=== PATIENT | female | born 1965 | race Hispanic/Latino ===

== ENCOUNTER 2017-10-21 11:37 | Inpatient (IN) | payer OTHER ==
[2017-10-21 12:14] LABS: Bilirubin Negative (Negative); Blood, Urine Negative (Negative); Clarity Clear (Clear); Glucose, Urine (Dipstick) Negative (Negative); Leukocyte Negative (Negative); Nitrite Negative (Negative); Protein, Urine (Dipstick) Negative (Neg-Trace); Urobilinogen 0.2 mg/dL (0.2-1.0)
[2017-10-21 12:28] LABS: #Basophils 0.1 thou/uL (0.0-0.2); #Lymphocytes 2.4 thou/uL (1.20-3.40); #Monocytes 1.1 thou/uL (0.11-0.59); #Neutrophils 15.2 thou/uL (1.40-6.50); %Basophils 0.4 % (0.0-1.0); %Eosinophils 0.1 % (0.0-10.0); %Lymphocytes 12.8 % (21.0-51.0); %Monocytes 5.7 % (0.0-10.0); Hemoglobin 13.5 g/dL (12.0-16.0); Mean Corpuscular HGB CONC 34.8 g/dL (32.0-36.0); Mean Corpuscular Hemoglobin 29.8 pg (27.0-31.0); Mean Corpuscular Volume 85.8 fL (78.0-98.0); Mean Platelet Volume 8.9 fL (7.4-10.4); Platelet Count 328 thou/uL (130-400); RBC Distribution Width 11.1 % (11.5-14.5); Red Blood Cell (RBC) Count 4.53 mill/uL (4.20-5.40); White Blood Cell (WBC) Count 18.8 thou/uL (4.8-10.8)
--- NOTE | 2017-10-21 12:33 | RAD ---
FRONTAL VIEW CHEST TWO VIEW ABDOMEN ACUTE ABDOMINAL SERIES: INDICATION: Pain with fever and chills. FINDINGS: The lungs are clear. No effusion. No free air beneath the hemidiaphragms. Cardiac silhouette is no rmal in size. The bowel gas pattern is nonobstructed. Osseous structures are intact. IMPRESSION: 1. No focal consolidation. 2. No evidence of free air. POS: [facility]
[2017-10-21 12:35] LABS: BHCG - Serum Negative (NEGATIVE); Pregs Control Background? CLEAR/WHITE (CLR/WHITE); Pregs Control Bar Appear? YES (CONTROL BAR)
[2017-10-21 12:43] LABS: ALT (SGPT) 17 U/L (8-55); AST (SGOT) 13 U/L (5-34); Albumin 4.2 g/dL (3.5-5.0); Alkaline Phosphatase 92 U/L (40-150); Anion Gap 13 mmol/L (10-20); BUN (Urea Nitrogen) 8 mg/dL (7.0-18.7); Calc. Creatinine Clearance 0 mL/min (70-130); Calcium 9.4 mg/dL (7.8-10.44); Carbon Dioxide 24 mmol/L (22-29); Chloride 106 mmol/L (98-107); Estimated GFR-MDRD Greater than 90; Globulin 3.8 g/dL (2.4-3.5); Glucose 127 mg/dL (70-105); Lipase 26 U/L (8-78); Potassium 3.7 mmol/L (3.5-5.1); Sodium 139 mmol/L (136-145)
[2017-10-21] MEDS ORDERED: Iopamidol 370 76% 100 ML VIAL ONE (14:56)
[2017-10-21] MEDS ORDERED: Succinylcholine Chloride 20 MG/ML 10 ml SYRINGE FS ONE (15:37)
[2017-10-21] MEDS ORDERED: Dexamethasone 20 MG/5 ML VIAL ONE (15:37)
[2017-10-21] MEDS ORDERED: PROPOFOL 200 MG/20 ML VIAL ONE (15:37)
[2017-10-21] MEDS ORDERED: Glycopyrrolate 0.2 MG/ML 5 ML SYRINGE ONE (15:37)
[2017-10-21] MEDS ORDERED: PHENYLEPHRINE-NS 100 MCG/ML 10 ML SYRINGE ONE (15:37)
[2017-10-21] MEDS ORDERED: Ondansetron HCl/PF 4 MG/2 ML Vial ONE (15:37)
[2017-10-21] MEDS ORDERED: Ketorolac Tromethamine 30 MG/ML VIAL ONE (15:37)
[2017-10-21] MEDS ORDERED: Lidocaine 1% PF 5 ML VIAL ONE ×2 (15:37)
--- NOTE | 2017-10-21 15:58 | CT ---
CT OF THE ABDOMEN AND PELVIS WITH IV CONTRAST: INDICATION: Fever and abdominal pain. FINDINGS: No comparisons are available. The lung bases are clear. There is a small gallstone within the gallbladder. There is a small area of focal fatty infiltration near the falciform ligament. The pancreas and adrenal glands are normal appearing. The kidneys are normal appearing. The spleen is normal appearing. There is marked dilatation of the appendix is with prominent surrounding inflammatory stranding. The appendix measures up to 2.7 cm. There is prominent wall thickening involving the cecum as well as t he distal ileum. The bladder, rectum, and perirectal soft tissues are unremarkable. There is no destiny dence of small bowel obstruction. No percutaneous drainable fluid collection is evident. No definit e acute osseous abnormality is evident. IMPRESSION: 1. Marked thickening and inflammatory stranding surrounding the appendix suspicious for acute append icitis. No definite drainable fluid collection is evident. There is marked wall thickening involvin g the adjacent cecum as well as a loop of distal ileum. The TI does not appear as thickened as the c ecum and distal ileum suggesting that the wall thickening involving the cecum and ileum is related to reactive changes rather than inflammatory bowel disease which is a differential consideration. Findings were called to Dr. Marquez at 3:34 p.m. on 10/21/17. 2. Mild fatty liver. 3. Cholelithiasis CODE CR POS: [facility]
[2017-10-21] MEDS ORDERED: Piperacillin/Tazobactam 4.5 GM VIAL ONE (15:59)
[2017-10-21] MEDS ORDERED: Fentanyl 100 MCG/2 ML VIAL ONE ×2 (18:26→21:00)
[2017-10-21] MEDS ORDERED: Bupivacaine/Epinephrine 0.25% 30 ML VIAL ONE (18:28)
--- NOTE | 2017-10-21 20:04 | HP ---
DATE OF ADMISSION: 10/21/2017 HISTORY OF PRESENT ILLNESS: This is a 52-year-old woman, who presented Hospital with insidious onset right lower quadrant abdominal pain. This pain was described as sharp, initially mi gratory. The pain then seemed to settle in the right lower quadrant. Pain was rated at 8/10 and ass ociated with two episodes of nausea and nonbilious emesis. Remotely, the patient reports similar adeline n which started approximately 1 month ago for which primary care physician had placed her on antibiot ics for 1 week. During the period of antibiotic therapy, she had no symptoms, but once the antibioti cs finished, the patient complained about recurrent right lower quadrant abdominal pain, which has be en intermittent up until this morning when the pain became so severe. The patient reports no fevers or chills. She reports no change in her bowel habits. PAST MEDICAL HISTORY: Pertinent for type 2 diabetes mellitus. PAST SURGICAL HISTORY: She denies any previous surgeries. SOCIAL HISTORY: She is a G5, P5. She is employed as an assistant shift supervisor in a kitchen. She denies any ciga rette smoking, ethanol or illicit drug abuse. MEDICATIONS: Hospital medication includes Tradjenta 5 mg p.o. daily. ALLERGIES: The patient denies any known drug allergies. FAMILY HISTORY: Significant for her mother who has diabetes mellitus, heart disease, and essential h ypertension. The patient reports no family history of cancer. REVIEW OF SYSTEMS: Ten-point review of systems is essentially unremarkable except for as stated in p ast medical history and chief complaint. PHYSICAL EXAMINATION: GENERAL: This reveals a 52-year-old normally developed woman, who is otherwise coherent and interact pretty and appears stated age. The patient is alert and oriented x3, appears to be in no acute distress at the time of my evaluation. VITAL SIGNS: Blood pressure 122/75, pulse is 103, respiratory rate 16, temperature 99.2 degrees Fahr enheit, oxygen saturation is 96% on room air. HEENT: Normocephalic and atraumatic. Pupils are equal; round; and reactive to light and accommodati on. Extraocular muscles are intact bilaterally. No sclerae icterus is present. Oral mucosa is pink and moist. No lesions are noted. HEART: Regular rate and rhythm. No murmurs or gallops auscultated. LUNGS: Clear to auscultation bilaterally. Breathing regular and unlabored. ABDOMEN: Soft with right lower quadrant tenderness at McBurney. She has a positive Rovsing sign. L iver and spleen are otherwise nonpalpable below costal margin. NEUROLOGIC: No focal deficits present. LABORATORY DATA: Pertinent laboratory findings today includes a CBC with 18,800 white blood cells, h emoglobin and hematocrit 13.5 and 38.9 respectively, platelet count is 328,000. Metabolic profile: Sodium 139, potassium is 3.7, chloride is 106, bicarbonate is 24, BUN 8, creatinine 0.64, glucose 127 , total bilirubin is 1. AST and ALT are normal at 13 and 17 respectively. Serum lipase is normal at 26. Serum test is negative. Urinalysis is essentially unremarkable. I have personally reviewed the CT scan of the abdomen and pelvis, which reveals dilated appendix at 2 .7 cm with significant periappendiceal fat stranding. I did not see any pneumoperitoneum or fluid co llection to suggest abscess. IMPRESSION: Acute on chronic appendicitis with phlegmon. PLAN: Laparoscopic appendectomy. I have informed the patient of the above findings and plan. I hav e also advised the patient of the risk and benefits of the proposed surgery. Risks include, but not limited to bleeding, infection, injury to bowel or surrounding structures. The patient faces additio nal risk for conversion to open due to 1 month long of symptomatology, which may present itself with significant amount of inflammatory adhesions. The patient indicates understanding of the information given. I have answered her questions. This information was provided to the patient in the presence of her large family.
[2017-10-21] MEDS ORDERED: Promethazine HCl 25 MG/ML VIAL SLOW IVP PRN (20:20)
[2017-10-21] MEDS ORDERED: Promethazine HCl 25 MG/ML VIAL IM PRN ×2 (20:20→20:39)
[2017-10-21] MEDS ORDERED: Ondansetron HCl/PF 4 MG/2 ML Vial IVP PRN ×2 (20:20→20:39)
[2017-10-21] MEDS ORDERED: Dextrose 5% in Water 1,000 ML IV PRN (20:39)
[2017-10-21] MEDS ORDERED: hydrALAZINE 20 MG/ML VIAL SLOW IVP PRN (20:39)
[2017-10-21] MEDS ORDERED: Dextrose 50% Abboject 50 ML SYRINGE SLOW IVP PRN (20:39)
[2017-10-21] MEDS ORDERED: traMADol HCl 50 MG TAB PO PRN ×2 (20:42)
[2017-10-21 21:38] VITALS: BMI 23.2
[2017-10-21] MEDS: Piperacillin/Tazobactam 3.375 GM in Sodium Chloride 0.9% 100 ML IVPB SCH (22:27)
[2017-10-21] MEDS: Lactated Ringer's 1,000 ML IV SCH (22:28)
[2017-10-21] MEDS: Acetaminophen 500 MG TAB PO SCH (22:28)
[2017-10-21] MEDS: Famotidine 20 MG TAB PO SCH (22:28)
[2017-10-21] MEDS: Famotidine/PF 20 mg/2ml Vial SLOW IVP SCH (23:15)
--- NOTE | 2017-10-22 00:19 | OP ---
DATE OF OPERATION: 10/21/2017 PREOPERATIVE DIAGNOSIS: Acute on chronic appendicitis. POSTOPERATIVE DIAGNOSES: Acute on chronic appendicitis plus periappendiceal abscess. SURGEON: Dr. Jefferson Granado. ANESTHESIA: General endotracheal. ESTIMATED BLOOD LOSS: 25 mL FLUIDS GIVEN: 600 mL crystalloids. URINARY OUTPUT: 200 mL SPONGE AND INSTRUMENT COUNT: Certified as correct x2. COMPLICATIONS: None apparent. INDICATIONS FOR PROCEDURE: This is a 52-year-old woman with 1 month history of recurrent right lower quadrant abdominal pain for which she was treated with antibiotics for 1 week approximately a month ago. Patient presented with severe recurrent right lower quadrant abdominal pain at this time on ___ __. Clinical examination was consistent with a dilated appendix with periappendiceal fat stran ding. Patient was brought to the operating room for appendectomy. FINDINGS: Consistent with dilated necrotic retrocecal appendix with small periappendiceal abscess ph legmon. DESCRIPTION OF PROCEDURE: Informed consent obtained from the patient who was brought to the operatin g room and placed in supine position. Following general anesthesia, a Kennedy catheter was inserted an d placed bedside drain. Abdomen was sterilely prepped and draped in the usual fashion. The skin bel ow the umbilicus was infiltrated with 0.25% Marcaine with epinephrine. A small curvilinear infraumbi lical incision was made using an 11 scalpel. Umbilical stalk grasped with Chandana's and elevated. Ve ress needle was inserted through the incision and placed in the peritoneal cavity through which the a bdomen was insufflated with 3 liters of CO2 gas. Intraabdominal pressure noted at 2 mmHg. Following abdominal insufflation, Veress needle was removed and a 5 mm trocar introduced using the Visiport un cris laparoscopy. Laparoscopy confirmed proper placement of the port, no injuries to underlying struc tures. Additional laparoscopy reveals right lower quadrant completely encased by omental adhesions. Under direct laparoscopy, 5 mm suprapubic and 12 mm left lower quadrant ports were placed after the overlying skin was infiltrated with 0.25% Marcaine with epinephrine and appropriate incision was made . Patient was placed in a Trendelenburg position, rotated to her left. I introduced a Prestige gras per through the left lower quadrant port site using this to take down omental adhesions to expose the terminal ileum which is completely welded to a retrocecal appendix and the cecum. We then continued using Endo suction catheter and bluntly taken down the small bowel off of the appendix and the appen mono was then freed up from the right lateral gutter. An appendiceal abscess which was encountered be tween the terminal ileum and the mesoappendix was evacuated using suction. A rent was then created through the mesoappendix at the base through which an Endo-BRAYDON with a blue lo ad was introduced and the appendix was divided at the appendical cecal junction. Using a white load of the Endo-BRAYDON, the mesoappendix was sterilely divided with good hemostasis. The suppurative append ix was delivered of the abdominal cavity using an EndoCatch. Operative site was again irrigated with saline solution noting good hemostasis. Finding no other pathology, laparoscopy was terminated. Fa scia of the left lower quadrant port was closed using 0 Vicryl suture and Endo closure device under l aparoscopy. Abdomen was desufflated after a #19 Ravinder drain was introduced into the right lower quad rant allowing this to exit the abdominal cavity through the suprapubic port site. After all ports and instruments have been removed and accounted for, the drain was secured to anterio r abdominal wall using 2-0 silk suture. Remaining incisions were closed using 4-0 Monocryl suture in subcuticular fashion. Dermabond was applied over the incisions. Patient tolerated the operation without any apparent complication and was returned to recovery room i n satisfactory condition.
[2017-10-22] MEDS: Ketorolac Tromethamine 30 MG/ML VIAL IVP PRN ×2 (01:47→08:16)
[2017-10-22] MEDS: Acetaminophen 500 MG TAB PO SCH ×5 (03:09→21:28)
[2017-10-22] MEDS: Piperacillin/Tazobactam 3.375 GM in Sodium Chloride 0.9% 100 ML IVPB SCH ×4 (04:09→21:30)
[2017-10-22 06:01] LABS: #Lymphocytes 1.2 thou/uL (1.20-3.40); #Monocytes 0.3 thou/uL (0.11-0.59); #Neutrophils 16.3 thou/uL (1.40-6.50); %Basophils 0.1 % (0.0-1.0); %Eosinophils 0.1 % (0.0-10.0); %Lymphocytes 6.5 % (21.0-51.0); %Monocytes 1.5 % (0.0-10.0); %Neutrophils 91.9 % (42.0-75.0); Mean Corpuscular HGB CONC 33.5 g/dL (32.0-36.0); Mean Corpuscular Hemoglobin 30.6 pg (27.0-31.0); Mean Corpuscular Volume 91.2 fL (78.0-98.0); Mean Platelet Volume 8.3 fL (7.4-10.4); Platelet Count 298 thou/uL (130-400); RBC Distribution Width 11.8 % (11.5-14.5); Red Blood Cell (RBC) Count 3.92 mill/uL (4.20-5.40); White Blood Cell (WBC) Count 17.7 thou/uL (4.8-10.8)
[2017-10-22] MEDS: Famotidine 20 MG TAB PO SCH ×2 (08:06→21:28)
[2017-10-22] MEDS: Enoxaparin Sodium 40 MG/0.4 ML SYRINGE SC SCH (08:06)
[2017-10-22] MEDS: Lactated Ringer's 1,000 ML IV SCH ×2 (08:06→18:43)
[2017-10-22] MEDS: Famotidine/PF 20 mg/2ml Vial SLOW IVP SCH (08:07)
[2017-10-23] MEDS: Piperacillin/Tazobactam 3.375 GM in Sodium Chloride 0.9% 100 ML IVPB SCH ×2 (03:27→10:30)
[2017-10-23] MEDS: Acetaminophen 500 MG TAB PO SCH ×4 (03:27→20:58)
--- NOTE | 2017-10-23 04:19 | PRG ---
DATE OF SERVICE: 10/23/2017 SUBJECTIVE: The patient is hospital day #2 status, postop day #1 from an acute on chronic appendicit is with phlegmon. She underwent laparoscopic appendectomy and she tolerated this procedure well. Yoshi salazar was placed on clear liquid diet last night, which she tolerated. Her pain is controlled and she blackburn d no issues overnight. PHYSICAL EXAMINATION: VITAL SIGNS: Temperature is 97.9, heart rate 69, blood pressure 105/69, respirations 16, oxygen satu ration 95% on room air. GENERAL: The patient is resting comfortably in bed with the assistance of an freelance interpreter/translator. She made it clear that she was not having any pain or having issues. She is passing gas, but has not had a wes wel movement yet. LUNGS: Clear to auscultation. HEART: Regular rate and rhythm. ABDOMEN: Soft, minimally tenderness. Wounds are clean, dry, and intact. LABORATORY DATA: White blood cell count 17.1, hemoglobin 12.0, hematocrit 35.7, platelets 298. Ther e are no radiographs to review this morning. ASSESSMENT AND PLAN: Status post acute on chronic appendicitis with phlegmon, status post laparoscop ic appendectomy. Plan will be to have the patient remain on clear liquid diet. Pain control, genera l IV fluid hydration and await bowel function return, at which time we will advance the patient's t and hopes that the patient will be able to be discharged within the next day or two. The evaluatio n was done with Dr. Granado this morning during rounds.
[2017-10-23] MEDS: Lactated Ringer's 1,000 ML IV SCH (05:20)
[2017-10-23] MEDS: Famotidine 20 MG TAB PO SCH ×2 (08:32→20:57)
[2017-10-23] MEDS: Enoxaparin Sodium 40 MG/0.4 ML SYRINGE SC SCH (08:32)
[2017-10-23] MEDS ORDERED: Ibuprofen 600 MG TAB PO PRN (17:01)
[2017-10-23] MEDS ORDERED: Senokot 8.6 MG TAB PO PRN (17:08)
--- NOTE | 2017-10-23 19:15 | PRG ---
DATE OF SERVICE: 10/23/2017 SUBJECTIVE: Ms. Holly is a 52-year-old woman who is postoperative day #2, status post laparoscop ic appendectomy and drainage of periappendiceal abscess. The patient is awake and alert. She reports adequate pain control. MARY drain returned scant serous f luid. OBJECTIVE: VITAL SIGNS: Today includes blood pressure 127/80, pulse is 72, respiratory rate 16, temperature is 98.5 degrees Fahrenheit, oxygen saturation is 92% on room air. HEENT: Reveals normocephalic and atraumatic. Pupils are equal, round, and reactive to light and acc ommodation. Extraocular muscles are intact bilaterally. No scleral icterus present. HEART: Reveals regular rate and rhythm, no murmurs or gallops auscultated. CHEST: Lungs clear to auscultation bilaterally. Breathing regular and unlabored. ABDOMEN: Soft, nondistended. SKIN: Incisions are intact, clean, and dry. She has no gross peritoneal signs on examination. IMPRESSION: Postoperative day #2, status post laparoscopic appendectomy and drainage of periappendic eal abscess, patient is hemodynamically stable. PLAN: 1. Remove Low-Piedra drain. 2. We will advance diet as tolerated. Antibiotics will be converted to oral intake for another 24 h ours and consider discharge if patient remains hemodynamically stable by morning. The above findings and plan discussed with the patient who indicates understanding of the information given. I have answered her questions.
[2017-10-23] MEDS: Docusate 100 MG CAP PO SCH (20:58)
[2017-10-23] MEDS: Amoxicillin/Potassium Clav 875 MG TAB PO SCH (20:58)
[2017-10-24] MEDS: Acetaminophen 500 MG TAB PO SCH ×3 (02:43→14:41)
[2017-10-24 04:35] LABS: Anion Gap 14 mmol/L (10-20); BUN (Urea Nitrogen) 7 mg/dL (7.0-18.7); Calc. Creatinine Clearance 86 mL/min (70-130); Calcium 8.8 mg/dL (7.8-10.44); Carbon Dioxide 27 mmol/L (22-29); Chloride 104 mmol/L (98-107); Estimated GFR-MDRD Greater than 90; Glucose 100 mg/dL (70-105); Magnesium 1.7 mg/dL (1.6-2.6); Phosphorus 3.3 mg/dL (2.3-4.7); Potassium 3.8 mmol/L (3.5-5.1); Sodium 141 mmol/L (136-145)
[2017-10-24 04:46] LABS: Band 1 % (5-11); Hemoglobin 12.1 g/dL (12.0-16.0); Lymphocytes 19 % (21-51); MDiff Complete? YES; Mean Corpuscular HGB CONC 32.9 g/dL (32.0-36.0); Mean Corpuscular Hemoglobin 30.3 pg (27.0-31.0); Mean Platelet Volume 8.2 fL (7.4-10.4); Monocytes 8 % (0-10); Neutrophil 72 % (42-75); Platelet Count 338 thou/uL (130-400); RBC Distribution Width 11.8 % (11.5-14.5); White Blood Cell (WBC) Count 10.4 thou/uL (4.8-10.8)
[2017-10-24] MEDS ORDERED: Polyethylene Glycol 3350 17 GM Packet PO SCH (09:00)
[2017-10-24] MEDS: Famotidine 20 MG TAB PO SCH (09:02)
[2017-10-24] MEDS: Amoxicillin/Potassium Clav 875 MG TAB PO SCH (09:02)
[2017-10-24] MEDS: Enoxaparin Sodium 40 MG/0.4 ML SYRINGE SC SCH (09:02)
[2017-10-24] MEDS: Docusate 100 MG CAP PO SCH (09:03)
[2017-10-24 15:25] VITALS: BP 127/80; TEMP 98.1
== END 2017-10-24 19:24 | disposition home or self-care (01) | DRG 340 ==
LOC: SCSER 11:37 → SURG A 15:50 → OBSVTOIN 15:50
PROVIDERS: ADMIT Surgery; ATTEND Surgery
PROC: 0DTJ4ZZ Resection of Appendix, Percutaneous Endoscopic Approach (ICD-10-PCS; principal; 2017-10-21)
DX: K35.3 Acute appendicitis with localized peritonitis (principal); E11.9 Type 2 diabetes mellitus without complications; K36 Other appendicitis
CPT/HCPCS: 36415; 36416; 74022; 74177; 80048; 80053; 81003; 83605; 83690; 83735; 84100; 84703; 85007; 85025; 85027; 88304; 90471; 90732; 96365; G0009; J1100; J1650; J1885; J2001; J2405; J2543; J2550; J2704; J3010; J7050; S0028

== ENCOUNTER 2020-07-09 14:25 | Outpatient (CLI) | payer OTHER | END 2020-07-09 14:26 | disposition home or self-care (01) | LOC: BICMAMMO 14:25 | PROVIDERS: ATTEND Family Medicine | DX: Z12.31 Encounter for screening mammogram for malignant neoplasm of breast (principal) | CPT/HCPCS: 77063; 77067 ==

== ENCOUNTER 2022-02-21 11:31 | Outpatient (CLI) | payer OTHER | END 2022-02-21 11:32 | disposition home or self-care (01) | LOC: BICMAMMO 11:31 | PROVIDERS: ATTEND Family Medicine | DX: Z12.31 Encounter for screening mammogram for malignant neoplasm of breast (principal) | CPT/HCPCS: 77063; 77067 ==

== ENCOUNTER 2023-03-06 14:29 | Outpatient (CLI) | payer BC | END 2023-03-06 14:30 | disposition home or self-care (01) | LOC: BICMAMMO 14:29 | PROVIDERS: ATTEND Family Medicine | DX: Z12.31 Encounter for screening mammogram for malignant neoplasm of breast (principal) | CPT/HCPCS: 77063; 77067 ==